=== PATIENT | female | born 1955 | race Hispanic/Latino ===

== ENCOUNTER 2022-01-06 10:07 | Outpatient (RCR) | payer MEDICARE ==
[2022-01-06] MEDS ORDERED: LIDOCAINE VISC 2% SOLN 15 ML UDC ONE (13:37)
== END 2022-01-28 ==
LOC: WCC 10:07
PROVIDERS: ATTEND Family Medicine Adult Medicine
DX: E11.22 Type 2 diabetes mellitus with diabetic chronic kidney disease (principal); E11.628 Type 2 diabetes mellitus with other skin complications; L89.302 Pressure ulcer of unspecified buttock, stage 2; L40.0 Psoriasis vulgaris; L40.50 Arthropathic psoriasis, unspecified; N18.2 Chronic kidney disease, stage 2 (mild); I10 Essential (primary) hypertension; H40.1131 Primary open-angle glaucoma, bilateral, mild stage